=== PATIENT | male | born 1955 | race African-American/Black ===

== ENCOUNTER 2024-01-14 12:35 | Emergency (ER) | payer MEDICARE ==
[~2024-01-14] VITALS: Ht 165.1 cm; Wt 75.0 kg
[~2024-01-14 12:35] MED LIST: CEPH-558 PO; CLON0.1T2 PO; LISI5TAB PO
[2024-01-14 12:37] VITALS: TEMP 98
[2024-01-14 14:18] VITALS: BP 141/88; PULSE 71; RESP 16
[2024-01-14] MEDS ORDERED: AMOX-426 PO (14:25)
[2024-01-14] MEDS: AMOX TR/POT CLAV 875 MG/125 MG TABLET PO ONE (14:35)
== END 2024-01-14 15:12 | disposition home or self-care (01) ==
LOC: EMS 12:47
DX: S51.851A Open bite of right forearm, initial encounter (principal); F31.9 Bipolar disorder, unspecified; I10 Essential (primary) hypertension; F17.210 Nicotine dependence, cigarettes, uncomplicated; Z88.6 Allergy status to analgesic agent; W54.0XXA Bitten by dog, initial encounter; Y93.89 Activity, other specified; Y92.89 Other specified places as the place of occurrence of the external cause; Y99.8 Other external cause status
CPT/HCPCS: 99283; 99406

== ENCOUNTER 2024-02-14 05:28 | Inpatient (IN) | payer MEDICARE ==
[~2024-02-14] VITALS: Ht 165.1 cm; Wt 67.7 kg
[~2024-02-14 05:28] MED LIST changes: +AMOX-426 PO; -CEPH-558 PO; -CLON0.1T2 PO; -LISI5TAB PO
[2024-02-14 08:14] LABS: BASOPHILS % (AUTO) 0.3 % (0.0-2.0); EOSINOPHILS % (AUTO) 0.2 % (1.0-6.0); HEMATOCRIT 41.8 % (41-53); HEMOGLOBIN 13.8 g/dL (13.5-17.5); LYMPHOCYTES % (AUTO) 13.3 % (22.0-44.0); MEAN CORPUSCULAR HEMOGLOBIN 28.9 pg (26.0-34.0); MEAN CORPUSCULAR HGB CONC 32.9 G/dL (31.0-37.0); MEAN CORPUSCULAR VOLUME 88 fL (80-100); MONOCYTES # (AUTO) 0.4 K/uL (0.1-1.0); MONOCYTES % (AUTO) 4.8 % (2.0-9.0); NEUTROPHILS # (AUTO) 6.3 K/uL (1.8-7.7); NEUTROPHILS % (AUTO) 81.4 % (40.0-70.0); PLATELET COUNT (AUTO) 187 K/uL (150-450); RED BLOOD CELL COUNT(AUTO) 4.76 MIL/uL (4.50-5.90); RED CELL DISTRIBUTION WIDTH 14.5 % (11.5-14.5); WHITE BLOOD COUNT (AUTO) 7.7 K/uL (4.5-11.0)
[2024-02-14 08:27] LABS: ANION GAP 13 mmol/L (8-16); CALCIUM, TOTAL 8.8 mg/dL (8.8-10.5); CARBON DIOXIDE 29 mmol/L (22-29); CHLORIDE 97 mmol/L (98-107); CREATININE 1.19 mg/dL (0.60-1.30); GLOMERULAR FILTR. RATE CALC > 60 mL/min (>60); GLUCOSE,RANDOM 141 mg/dL (70-110); SODIUM SERUM 139 mmol/L (136-145); UREA NITROGEN, BLOOD 16 mg/dL (7-18)
[2024-02-14 08:30] LABS: B-TYPE NATRIURETIC PEPTIDE 395 pg/mL (0-100); POTASSIUM 2.2 mmol/L (3.5-5.1)
[2024-02-14 08:36] LABS: TROPONIN I-HIGH SENSITIVITY 43 ng/L (<76)
[2024-02-14] MEDS: POTASSIUM CHLORIDE 20 MEQ ER TABLET PO ONE (08:43)
[2024-02-14] MEDS: POTASSIUM CHL 10 MEQ/WATER 50 ML IV SCH (08:43)
[2024-02-14] MEDS ORDERED: ALBUTEROL SULFATE 2.5 MG/0.5 ML NEB SOLUTION NEB PRN (09:15)
[2024-02-14] MEDS ORDERED: POTASSIUM CHLORIDE 20 MEQ ER TABLET PO PRN (09:15)
[2024-02-14] MEDS ORDERED: ZOLPIDEM TARTRATE 5 MG TABLET PO PRN (09:15)
[2024-02-14] MEDS ORDERED: MAGNESIUM HYDROXIDE SUSPENSION 30 ML UDCUP PO PRN (09:15)
[2024-02-14 09:44] VITALS: O2SAT 96
[2024-02-14 14:50] VITALS: BP 162/93; PULSE 86; RESP 14; TEMP 97.5; O2SAT 96
[2024-02-14] MEDS: AmLODIPine BESYLATE 5 MG TABLET PO SCH (14:58)
[2024-02-14] MEDS ORDERED: SODIUM CHLORIDE 0.9% 1,000 ML ONE (16:24)
[2024-02-14] MEDS: POTASSIUM CHL 10 MEQ/WATER 50 ML IV PRN (16:43)
[2024-02-14 16:54] VITALS: BP 131/96; PULSE 82; RESP 18; TEMP 98.3; O2SAT 98
[2024-02-14] MEDS: HEPARIN SODIUM,PORCINE 5,000 UNITS/ML VIAL SQ SCH (17:16)
[2024-02-14] MEDS ORDERED: SODIUM CHLORIDE 0.9% 250 ML IV ONE (17:18)
[2024-02-14 20:02] VITALS: BP 170/93; PULSE 94; RESP 19; TEMP 98.3; O2SAT 98
[2024-02-14] MEDS: CARVEDILOL 6.25 MG TABLET PO SCH (20:20)
[2024-02-14 21:00] VITALS: BP 158/84; PULSE 85; RESP 19; O2SAT 95
[2024-02-15 00:33] VITALS: BP 138/73; PULSE 84; RESP 18; TEMP 98.8; O2SAT 98
[2024-02-15 05:21] VITALS: BP 144/95; PULSE 88; RESP 18; TEMP 98.7; O2SAT 99
[2024-02-15 07:42] LABS: BASOPHILS % (AUTO) 0.4 % (0.0-2.0); EOSINOPHILS % (AUTO) 1.6 % (1.0-6.0); HEMATOCRIT 36.7 % (41-53); HEMOGLOBIN 12.1 g/dL (13.5-17.5); LYMPHOCYTES # (AUTO) 1.7 K/uL (1.0-4.8); LYMPHOCYTES % (AUTO) 28.4 % (22.0-44.0); MEAN CORPUSCULAR HEMOGLOBIN 29.1 pg (26.0-34.0); MEAN CORPUSCULAR HGB CONC 33.1 G/dL (31.0-37.0); MEAN CORPUSCULAR VOLUME 88 fL (80-100); MONOCYTES # (AUTO) 0.7 K/uL (0.1-1.0); NEUTROPHILS # (AUTO) 3.4 K/uL (1.8-7.7); NEUTROPHILS % (AUTO) 57.6 % (40.0-70.0); PLATELET COUNT (AUTO) 142 K/uL (150-450); RED BLOOD CELL COUNT(AUTO) 4.17 MIL/uL (4.50-5.90); RED CELL DISTRIBUTION WIDTH 14.6 % (11.5-14.5); WHITE BLOOD COUNT (AUTO) 5.9 K/uL (4.5-11.0)
[2024-02-15] MEDS: ASPIRIN 81 MG CHEWABLE TABLET PO SCH (08:06)
[2024-02-15] MEDS: ATORVASTATIN CALCIUM 20 MG TABLET PO SCH (08:06)
[2024-02-15] MEDS: FAMOTIDINE 20 MG TABLET PO SCH (08:07)
[2024-02-15 08:24] LABS: ANION GAP 9 mmol/L (8-16); CARBON DIOXIDE 28 mmol/L (22-29); CHLORIDE 104 mmol/L (98-107); CREATININE 1.03 mg/dL (0.60-1.30); GLUCOSE,RANDOM 95 mg/dL (70-110); SODIUM SERUM 141 mmol/L (136-145); UREA NITROGEN, BLOOD 14 mg/dL (7-18)
[2024-02-15 08:25] LABS: ALANINE AMINOTRANSFERASE 40 U/L (12-78); ALBUMIN 2.4 g/dL (3.4-5.0); ALKALINE PHOSPHATASE 69 U/L (46-116); ASPARTATE AMINOTRANSFERASE 54 U/L (15-37); BILIRUBIN,TOTAL 0.4 mg/dL (0.1-1.0); CALCIUM, TOTAL 8.1 mg/dL (8.8-10.5); GLOMERULAR FILTR. RATE CALC > 60 mL/min (>60); TOTAL PROTEIN, SERUM 5.7 g/dL (6.4-8.2)
[2024-02-15 08:26] VITALS: BP 151/100; PULSE 76; RESP 18; TEMP 98; O2SAT 97
[2024-02-15 08:47] LABS: COVID AG,FIA SOURCE NASAL SWAB
[2024-02-15 08:56] LABS: POTASSIUM 2.9 mmol/L (3.5-5.1)
[2024-02-15 08:57] LABS: APPEARANCE,URINE CLEAR (CLEAR); BILIRUBIN,URINE NEGATIVE (NEGATIVE); COLOR,URINE LIGHT YELLOW (YELLOW); GLUCOSE, URINE (UA) TRACE mg/dL (NEGATIVE); KETONES,URINE NEGATIVE (NEGATIVE); LEUKOCYTE ESTERASE ,URINE NEGATIVE (NEGATIVE); NITRATE,URINE NEGATIVE (NEGATIVE); OCCULT BLOOD,URINE NEGATIVE (NEGATIVE); PROTEIN,URINE NEGATIVE (NEGATIVE); SPECIFIC GRAVITIY, URINE 1.013 (1.003-1.030); UROBILINOGEN,URINE <=1.0 mg/dL (<=1.0)
[2024-02-15 09:17] LABS: SARS-COV2 (COVID) ANTIGEN,FIA Negative (Negative)
[2024-02-15 09:29] LABS: BACTERIA,URINE None Seen /HPF (None Seen); RBC,URINE None Seen /HPF (0-2); SQUAMOUS EPITHELIAL CELL,UR None Seen /LPF (None Seen); WBC,URINE None Seen /HPF (0-5)
== END 2024-02-15 09:40 | disposition left against medical advice (07) | DRG 641 ==
LOC: EMS 05:28 → EDH 09:10 → 5N 13:48
PROVIDERS: ADMIT Internal Medicine; ATTEND Internal Medicine
DX: E87.6 Hypokalemia (principal); I25.10 Atherosclerotic heart disease of native coronary artery without angina pectoris; F20.9 Schizophrenia, unspecified; I50.9 Heart failure, unspecified; I11.0 Hypertensive heart disease with heart failure; F17.210 Nicotine dependence, cigarettes, uncomplicated; Z53.29 Procedure and treatment not carried out because of patient's decision for other reasons; F31.9 Bipolar disorder, unspecified; Z20.822 Contact with and (suspected) exposure to COVID-19; Z88.6 Allergy status to analgesic agent; Z95.1 Presence of aortocoronary bypass graft; Z71.6 Tobacco abuse counseling
CPT/HCPCS: 71045; 80048; 80053; 81001; 83735; 83880; 84132; 84484; 85025; 93005; 93306; 99285; J1644; J3480; J7030; J7050; 36415-L1; 36415-TC